=== PATIENT | female | born 1995 | race Caucasian/White ===

== ENCOUNTER 2017-04-26 09:32 | Outpatient (CLI) ==
[2015-05-29 14:59] VITALS: BMI 22.1
--- NOTE | 2017-04-26 10:09 | DI ---
EXAM: Two views of the abdomen. History: Abdominal pain. Findings: Nonspecific but nonobstructive bowel gas pattern. A few mildly distended loops of colon probably related to ileus. No free intraperitoneal air. No acute osseous abnormalities. Moderate stool seen within the rectosigmoid colon. No suspicious calcifications. Impression: 1. A few mildly distended loops of colon probably related to ileus. No specific evidence for bowel obstruction. 2. Moderate stool within the rectosigmoid colon.
[2017-04-26 10:20] LABS: BASOPHILS % (AUTO) 0.3 % (0.0-3.0); EOSINOPHILS # (AUTO) 0.1 K/ul (0.0-0.7); EOSINOPHILS % (AUTO) 0.7 % (0.0-7.0); HEMATOCRIT 39.4 % (37.0-47.0); HEMOGLOBIN 13.8 g/dl (12.0-16.0); IMMATURE GRANULOCYTE % (AUTO) 0.3 % (0.0-5.0); LYMPHOCYTES # (AUTO) 2.5 K/uL (0.60-3.4); LYMPHOCYTES % (AUTO) 23.8 (10.0-50.0); MEAN CORPUSCULAR HEMOGLOBIN 31.1 pg (27.0-31.0); MEAN CORPUSCULAR VOLUME 88.7 fl (81.0-99.0); MONOCYTES # (AUTO) 0.6 K/uL (0.4-2.0); MONOCYTES % (AUTO) 5.4 (0-10); NEUTROPHILS # (AUTO) 7.4 K/ul (2.0-6.9); NEUTROPHILS % (AUTO) 69.5; PLATELET COUNT 342 10^3/uL (140-440); RED BLOOD COUNT 4.44 10^6/ul (4.20-5.40); WHITE BLOOD COUNT 10.67 K/ul (4.6-10.2)
[2017-04-26 10:33] LABS: BILIRUBIN,URINE Negative (NEGATIVE); KETONES,URINE Negative (NEGATIVE); LEUKOCYTE ESTERASE ,URINE Negative (NEGATIVE); NITRITE,URINE Negative (NEGATIVE); PROTEIN,URINE Negative (NEGATIVE); URINE PREGNANCY INTERNAL QC INTERNAL QC VALID; URINE, BLOOD Trace-intact (NEGATIVE)
[2017-04-26 10:34] LABS: ADD URINE MICROSCOPIC YES
[2017-04-26 10:39] LABS: ALBUMIN 3.8 g/dL (3.4-5.0); ALBUMIN/GLOBULIN RATIO 1.19; BILIRUBIN,TOTAL 0.32 mg/dL (0.00-1.20); BUN/CREATININE RATIO 12.5; CALCIUM 9.2 mg/dL (8.2-10.2); CREATININE 0.72 mg/dL (0.60-1.30)
== END 2017-04-26 09:33 | disposition home or self-care (01) ==
LOC: LAB 09:32
PROVIDERS: ATTEND Nurse Practitioner Family
DX: R10.9 Unspecified abdominal pain (principal)
CPT/HCPCS: 36415; 80053; 81001; 81025; 85025

== ENCOUNTER 2017-11-25 12:07 | Outpatient (CLI) ==
[2015-05-29 14:59] VITALS: BMI 22.1
== END 2017-11-25 12:08 | disposition home or self-care (01) ==
LOC: LAB 12:07
PROVIDERS: ATTEND Nurse Practitioner Family
DX: R05 Cough (principal); R50.9 Fever, unspecified
CPT/HCPCS: 87502; 87651

== ENCOUNTER 2018-05-30 09:15 | Outpatient (CLI) ==
[2015-05-29 14:59] VITALS: BMI 22.1
== END 2018-05-30 09:16 | disposition home or self-care (01) ==
LOC: RHC-LAB 09:15
PROVIDERS: ATTEND Nurse Practitioner Family
DX: J02.9 Acute pharyngitis, unspecified (principal)
CPT/HCPCS: 87651

== ENCOUNTER 2019-03-02 15:44 | Emergency (ER) ==
[2019-03-02 16:00] VITALS: TEMP 99.9; BMI 28.4
--- NOTE | 2019-03-02 16:53 | ED.PDOC ---
General ED Provider: Dr. DAVID CANALES Chief Complaint: Dizziness Stated Complaint: Dizziness, chest tightness. Onset after lunch. Noted BP to be elevated and contracted PCP office who directed pt to go to [facility]. Asymptomatic upon arrival here Time Seen by Physician: 16:35 Mode of Arrival: Walk-In Information Source: Patient, Family Exam Limitations: No limitations Primary Care Provider: JONO POTTS Referred to ED by: PCP Nursing and Triage Documentation Reviewed and Agree: Yes Does patient meet sepsis criteria?: No System Inflammatory Response Syndrome: Not Applicable Sepsis Protocol: For patient's 13 years and over: Temp is 96.8 and below OR 101 and greater Pulse >90 BPM Resp >20/minute Acutely Altered Mental Status Are patient's symptoms suggestive of a new infection, such as: -Pneumonia -Skin, Soft Tissue -Endocarditis -UTI -Bone, Joint Infection -Implantable Device -Acute Abdominal Infection -Wound Infection -Meningitis -Blood Stream Catheter Infection -Unknown Neurological Complaint Exam - Dizziness Complaint/Exam Last Known Well: 12 noon Onset: Sudden Duration: 1 hr Symptoms Are: Resolved Timing: Intermittent Episodes Lasting: Minutes Initial Severity: Moderate Current Severity: Mild Character: Reports: Lightheaded, Dizzy Aggravating: Reports: None Alleviating: Reports: None Associated Signs and Symptoms: Reports: Palpitations. Denies: Nausea, Vomiting , Diaphoresis, Tinnitus, Chest pain, Short of air, Unsteady gait, GI blood loss , Visual changes, Decreased oral intake, Change in medication, Change in diet, OTC meds, Loss of balance Cardiac Risk Factors: Reports: None CVA Risk Factors: Reports: None Related Surgical History: Reports: None JVD Present: No Carotid Bruit Present: No Rectal Heme Positive: No Nystagmus Present: No Gag Reflex Present: No Meningeal Signs Positive: No Focal Weakness: Present: None Focal Sensory Loss: Present: None Gait: Normal [id number]: Normal Findings Romberg Test Positive: No Babinski Sign: Negative Right, Negative Left Review of Systems - Review Of Systems Constitutional: Reports: No symptoms Eyes: Reports: No symptoms Ears, Nose, Mouth, Throat: Reports: No symptoms Respiratory: Reports: No symptoms Cardiac: Reports: Palpitations GI: Reports: No symptoms : Reports: No symptoms Musculoskeletal: Reports: No symptoms Skin: Reports: No symptoms Neurological: Reports: No symptoms Endocrine: Reports: No symptoms Hematologic/Lymphatic: Reports: No symptoms All Other Systems: Reviewed and Negative Past Medical History - Past Medical History Previously Healthy: Yes Endocrine: Reports: None Cardiovascular: Reports: None Respiratory: Reports: None Hematological: Reports: None Gastrointestinal: Reports: None Genitourinary: Reports: None Neuro/Psych: Reports: None Musculoskeletal: Reports: None Cancer: Reports: None Last Menstrual Period: - Surgical History General Surgical History: Reports: Other - Family History Family History: Reports: Unknown - Social History Smoking Status: Current every day smoker Hx Substance Use: No Alcohol Screening: Occasionally - Immunizations Tetanus Shot up to Date: No Physical Exam - Physical Exam Appearance: Well-appearing, No pain distress, Well-nourished Ill-appearing: None Pain Distress: None Eyes: ZAIRA, EOMI, Conjunctiva clear ENT: Ears normal, Nose normal, Oropharynx normal Neck: Supple (NO BRUITS to ascultation) Respiratory: Airway patent, Breath sounds clear, Breath sounds equal, Respirations nonlabored Cardiovascular: RRR, Pulses normal, No rub, No murmur GI/: Soft, Nontender, No masses, Bowel sounds normal, No Organomegaly Musculoskeletal: Normal strength, ROM intact, No edema, No calf tenderness Skin: Warm, Dry, Normal color Neurological: Sensation intact, Motor intact, Reflexes intact, Cranial nerves intact, Alert, Oriented Psychiatric: Affect appropriate, Mood appropriate Critical Care Note - Critical Care Note Total Time (mins): 60 Course - Course Hematology/Chemistry: 03/02/19 17:00 03/02/19 17:00 Orders, Labs, Meds: Lab Review 03/02/19 03/02/19 03/02/19 17:00 17:00 17:00 WBC 11.05 H RBC 4.42 Hgb 13.8 Hct 39.8 MCV 90.0 MCH 31.2 H MCHC 34.7 RDW Coeff of Chris 11.5 L Plt Count 374 Immature Gran % (Auto) 0.3 Neut % (Auto) 63.7 Lymph % (Auto) 28.3 [place] % (Auto) 6.3 Eos % (Auto) 1.1 Baso % (Auto) 0.3 Immature Gran # (Auto) 0.0 Neut # (Auto) 7.0 H Lymph # (Auto) 3.1 [place] # (Auto) 0.7 Eos # (Auto) 0.1 Baso # (Auto) 0.0 Sodium 139.6 Potassium 3.91 Chloride 105.7 Carbon Dioxide 25.5 Anion Gap 12.31 BUN 9.1 Creatinine 0.74 Estimated GFR (MDRD) 97.00 BUN/Creatinine Ratio 12.29 Glucose 81.8 Calcium 9.17 Total Bilirubin 0.29 AST 19.5 ALT 11.5 Alkaline Phosphatase 66.9 Total Creatine Kinase 48.2 Total Protein 7.42 Albumin 4.82 Globulin 2.60 Albumin/Globulin Ratio 1.85 Serum , Qual Negative Urine Color Urine Clarity Urine pH Ur Specific [place] Urine Protein Urine Glucose (UA) Urine Ketones Urine Blood Urine Nitrite Urine Bilirubin Urine Urobilinogen Ur Leukocyte Esterase Urine Opiates Screen Ur Oxycodone Screen Urine Methadone Screen Ur Propoxyphene Screen Ur Barbiturates Screen U Tricyclic Antidepress Ur Phencyclidine Scrn Ur Amphetamine Screen U Methamphetamines Scrn U Benzodiazepines Scrn Urine Cocaine Screen U Cannabinoids Screen 03/02/19 03/02/19 17:25 17:25 WBC RBC Hgb Hct MCV MCH MCHC RDW Coeff of Chris Plt Count Immature Gran % (Auto) Neut % (Auto) Lymph % (Auto) [place] % (Auto) Eos % (Auto) Baso % (Auto) Immature Gran # (Auto) Neut # (Auto) Lymph # (Auto) [place] # (Auto) Eos # (Auto) Baso # (Auto) Sodium Potassium Chloride Carbon Dioxide Anion Gap BUN Creatinine Estimated GFR (MDRD) BUN/Creatinine Ratio Glucose Calcium Total Bilirubin AST ALT Alkaline Phosphatase Total Creatine Kinase Total Protein Albumin Globulin Albumin/Globulin Ratio Serum , Qual Urine Color Yellow Urine Clarity Clear Urine pH 7.5 Ur Specific [place] 1.010 Urine Protein Negative Urine Glucose (UA) Negative Urine Ketones Negative Urine Blood Negative Urine Nitrite Negative Urine Bilirubin Negative Urine Urobilinogen 0.2 Ur Leukocyte Esterase Negative Urine Opiates Screen Negative Ur Oxycodone Screen Negative Urine Methadone Screen Negative Ur Propoxyphene Screen Negative Ur Barbiturates Screen Negative U Tricyclic Antidepress Negative Ur Phencyclidine Scrn Negative Ur Amphetamine Screen Negative U Methamphetamines Scrn Negative U Benzodiazepines Scrn Negative Urine Cocaine Screen Negative U Cannabinoids Screen Negative Orders Category Date Time Status EKG-(ED ONLY) Stat CARDIO 03/02/19 16:49 Completed CBC W/ AUTO DIFF Stat LAB 03/02/19 17:00 Completed CMP [COMPREHENSIVE METABOLIC PANEL] Stat LAB 03/02/19 17:00 Completed CPK [CREATINE KINASE] Stat LAB 03/02/19 17:00 Completed HCG QUALITATIVE [SERUM ] Stat LAB 03/02/19 17:00 Completed UA [URINALYSIS C & S IF INDICATED] Stat LAB 03/02/19 17:25 Completed URINE DRUG SCREEN (RAPID FOR ED) [DRUG SCREEN, URINE, LAB 03/02/19 17:25 Completed RAPID] Stat CHEST, 2 VIEWS PA & LAT Stat RADS 03/02/19 16:[address] HEAD W/O CONTRAST Stat RADS 03/02/19 16:49 Completed Vital Signs: Temp Pulse Resp BP Pulse Ox 03/02/19 17:46 85 118/62 100 03/02/19 17:00 88 110/70 99 03/02/19 15:47 99.9 F H 94 H 18 148/89 H 98 Departure - Departure Time of Disposition: 18:40 Disposition: HOME SELF-CARE Discharge Problem: Dizziness, Elevated BP without diagnosis of hypertension Instructions: Heart Healthy Diet (ED), Hypertension (ED), Lightheadedness (ED) , Dizziness (ED) Condition: Stable Pt referred to PMD for follow-up: Yes IPMP verified?: No Additional Instructions: Maintain normal activity Monitor BP periodiclally at home See PCP in 1 wk Allergies/Adverse Reactions: Allergies No Known Drug Allergies Adverse Reaction (Verified 03/02/19 16:22) Home Medications: Ambulatory Orders Norethindrone-E.estradiol-Iron [Lo Loestrin Fe 1-10 Tablet] 1 each PO DAILY 08/09 Albuterol Sulfate [Ventolin Hfa] 18 gm IH PRN PRN 03/02/19 Disposition Discussed With: Patient, Family Cardiovascular Complaint Exam - Palpitations Complaint/Exam Onset/Duration: early afternoon Symptoms Are: Resolved Timing: Intermittent Initial Severity: Moderate Current Severity: None Character: Reports: Pounding Aggravating: Reports: None Alleviating: Reports: Rest Associated Signs and Symptoms: Reports: Lightheadedness, Dizziness Related Surgical History: Reports: None Cardiac Risk Factors: Reports: None Pulmonary Embolism Risk Factors: Reports: None Atrial Fibrillation Risk Factors: Reports: None Thyroid Exam: Normal Differential Diagnoses: Panic Disorder, Paroxysmal SVT Quality Indicator For Non-Traumatic Chest Pain/Syncope: EKG Performed
[2019-03-02 17:47] VITALS: BP 118/62
--- NOTE | 2019-03-02 17:55 | CT ---
EXAM: Noncontrast CT head. HISTORY: Dizziness. COMPARISON: 05/29/2015 TECHNIQUE: Noncontrast CT head was performed with axial, coronal and sagital reconstructions. Findings: There is preservation of the michel-white differential without evidence of definitive large vessel acut e cortical infarct identified. No acute intracranial hemorrhage is identified. No midline shift is identified. No definitive intracranial mass lesion is identified within technical limitations of non contrast CT. The basal cisterns are patent. The ventricles are normal in size and configuration. L imited evaluation of the skull demonstrates no visualized lucent skull acute fractures or destructive osseous lesions identified within the visualized portions of the skull. Partially visualized parana julisa sinuses and mastoid air cells appear relatively clear in the visualized regions. Impression: 1. No acute intracranial hemorrhage or definitive large vessel acute cortical infarct identified.
--- NOTE | 2019-03-02 17:57 | DI ---
EXAM: PA and lateral views of the chest HISTORY: Chest pain dizziness and weakness COMPARISON: Chest Xray from 09/18/2016 FINDINGS: There is no change. Lungs are clear with no lobar consolidation, failure, large effusion or significant atelectasis. Cardiac and mediastinal silhouettes show no acute abnormality. No acute o sseous or soft tissue abnormalities. IMPRESSION: No active disease.
== END 2019-03-02 18:44 | disposition home or self-care (01) ==
LOC: ED 15:44
DX: R42 Dizziness and giddiness (principal); R03.0 Elevated blood-pressure reading, without diagnosis of hypertension; R07.89 Other chest pain; R00.2 Palpitations; F17.210 Nicotine dependence, cigarettes, uncomplicated
CPT/HCPCS: 36415; 80053; 80306; 81001; 82550; 84443; 84703; 85025; 93005; 93010; 99284